=== PATIENT | female | born 1950 | race Caucasian/White ===

== ENCOUNTER 2017-03-06 14:12 | Emergency (ER) | payer MEDICARE, OTHER ==
[~2017-03-06] VITALS: Ht 157.5 cm; Wt 76.5 kg
[~2017-03-06 14:12] MED LIST: ATEN100T PO; BENA20TA48 PO; CIPR500T4 PO; GABA300C16 PO; HYDR-3011 PO; HYDR-3498 PO; MECL-77 PO; MECL25TA2 PO; NAPR-260 PO; PRAV40TA76 PO
[2017-03-06 14:51] VITALS: Ht 157.5 cm; Wt 76.5 kg
[2017-03-06] MEDS ORDERED: KENC1 TOP (15:31)
[2017-03-06] MEDS ORDERED: CETI10CA PO (15:31)
[2017-03-06] MEDS ORDERED: PRED20TA PO (15:32)
--- NOTE | 2017-03-06 15:35 | ERD ---
ER Documentation Chief Complaint Date/Time DATE: 03/06/17 TIME: 15:33 Chief Complaint Pt with body rash X 2 days. HPI This 66-year-old female presents with skin lesions for last 3 days. She has a few on her lower extremities and her abdomen. They are itchy. She was working out in the garden but denies any known exposures. She denies any fevers, cough , shortness breath or chest pain. She has similar lesion in the past after going to [place] with a resolve once she returned home. ROS All systems reviewed and are negative except as per history of present illness. Medications Home Meds Active Scripts Prednisone* (Prednisone*) 20 Mg Tab, 20 MG PO DAILY for 4 Days, TAB Prov:SAMPSON DEWITT MD 03/06/17 Cetirizine Hcl* (Zyrtec*) 10 Mg Capsule, 10 MG PO DAILY, #15 TAB.CHEW Prov:SAMPSON DEWITT MD 03/06/17 Triamcinolone Acetonide (Triamcinolone Acetonide) 0.1% - 15 Gm Cream.gm., 1 APPLIC TOP QID for 7 Days, #1 TUB Prov:SAMPSON DEWITT MD 03/06/17 Ciprofloxacin Hcl* (Ciprofloxacin Hcl*) 500 Mg Tablet, 500 MG PO BID for 7 Days , TAB Prov:SANDRA TANG PA-C 03/20/16 Meclizine Hcl* (Meclizine Hcl*) 25 Mg Tablet, 25 MG PO Q8H Y for vertigo, #20 TAB Prov:ROME BUTTERFIELD 11/27/15 Hydrocodone Bit-Acetaminophen* (Tarrs*) 5-325 Mg Tab, 1 TAB PO Q6 Y for PAIN, # 20 TAB Prov:ROME BUTTERFIELD 11/27/15 Meclizine Hcl* (Antivert*) 25 Mg Tablet, 25 MG PO Q6H Y for dizziness, #20 TAB Prov:RAFITA ASH MD 11/19/15 Reported Medications Hydroxyzine Hcl* (Hydroxyzine Hcl*) 25 Mg Tablet, 25 MG PO DAILY Y for ITCHING, TAB 09/17/14 Gabapentin* (Gabapentin*) 300 Mg Capsule, 300 MG PO BID, CAP 09/17/14 Naproxen* (Naprosyn*) 500 Mg Tablet, 500 MG PO BID, TAB 08/25/14 Benazepril Hcl* (Benazepril Hcl*) 20 Mg Tablet, 20 MG PO DAILY, TAB 08/25/14 Pravastatin Sodium* (Pravastatin Sodium*) 40 Mg Tablet, 40 MG PO HS, TAB 08/25/14 Atenolol* (Atenolol*) 100 Mg Tablet, 100 MG PO DAILY, TAB 08/25/14 Allergies Allergies: Coded Allergies: No Known Allergies (Verified Allergy, Mild, 03/06/17) PMhx/Soc History of Surgery: Yes (T&A, C/S) Anesthesia Reaction: No Hx Neurological Disorder: No Hx Respiratory Disorders: No Hx Cardiac Disorders: Yes (HTN , Hyperlipidemia) Hx Psychiatric Problems: Yes (DEPRESSION) Hx Miscellaneous Medical Probl: Yes (DM; djd; fatty liver; back pain) Hx Alcohol Use: No Hx Substance Use: No Hx Tobacco Use: Yes Smoking Status: Current every day smoker Physical Exam Vitals Vital Signs Date Time Temp Pulse Resp B/P Pulse Ox O2 Delivery O2 Flow Rate FiO2 03/06/17 14:51 99.0 84 20 137/65 97 Physical Exam Const: [] Alert, [id number]. Head: Atraumatic Eyes: Normal Conjunctiva ENT: Normal External Ears, Nose and Mouth. Neck: Full range of motion..~ No meningismus. Resp: Clear to auscultation bilaterally Cardio: Regular rate and rhythm, no murmurs Abd: Soft, non tender, non distended. Normal bowel sounds Skin: No petechiae or purpura. There are few scattered erythematous wheals approximate 1 cm with a central papule. There are 2 in the feet and one on the abdomen and one in the left upper extremity. There is no induration, streaking , vesicles, warmth, fluctuance Back: No midline or flank tenderness Ext: No cyanosis, or edema Neur: Awake and alert Psych: Normal Mood and Affect Procedures/MDM This patient presents with skin lesions with the clinical appearance of local reaction to insect bites, possibly flea bites. Signs or symptoms do not suggest purpura, life-threatening rashes or significant signs of infection. She will treated with triamcinolone, Zyrtec short course prednisone instruction to follow-up with her primary care doctor this week. The patient was stable with no new complaints during the ER course. Clinically, there is no current evidence to suggest meningitis, sepsis, acute abdomen, pneumonia, acute coronary syndrome, pulmonary embolism, or any other emergent condition appearing to require further evaluation or hospitalization. The patient should certainly return for any new or worsening symptoms per the aftercare instructions. They should otherwise follow-up with her primary care doctor for reevaluation this week. Departure Diagnosis: Primary Impression: Rash Condition: Stable Patient Instructions: Dermatitis, Non-Specific, Allergic Reaction, Insect ( Local) Additional Instructions: Cheque otro vez con santana doctor primario en el proximo abraham or regresa para mas o nueva simptomas. SAMPSON DEWITT MD March 06, 2017 15:35
[2017-03-06 15:42] VITALS: BP 132/63; PULSE 72; RESP 20; TEMP 98.8
== END 2017-03-06 15:43 | disposition home or self-care (01) ==
LOC: FTE 14:12
DX: R21 Rash and other nonspecific skin eruption (principal); I10 Essential (primary) hypertension; E11.9 Type 2 diabetes mellitus without complications; F17.210 Nicotine dependence, cigarettes, uncomplicated
CPT/HCPCS: 99284

== ENCOUNTER 2017-11-21 14:27 | Emergency (ER) | END 2017-11-21 17:55 | disposition left against medical advice (07) ==

== ENCOUNTER 2019-01-31 11:56 | Emergency (ER) | payer MEDICARE, OTHER ==
[~2019-01-31] VITALS: Wt 74.2 kg
[~2019-01-31 11:56] MED LIST changes: +BENA20TA4 PO; -BENA20TA48 PO; +CETI10CA PO; -HYDR-3011 PO; +HYDR-843 PO; -NAPR-260 PO; +NAPR-985 PO; +PRED20TA PO; +TRIA15CR55 TOP
[2019-01-31 14:51] VITALS: BP 137/64; PULSE 75; RESP 20
[2019-01-31] MEDS ORDERED: ACET500C5 PO (17:11)
[2019-01-31] MEDS ORDERED: CEPH-443 PO (17:11)
--- NOTE | 2019-01-31 17:26 | ERD ---
ER Documentation Chief Complaint Chief Complaint DYSURIA HPI 68 -year-old female patient with a past medical history of hypertension complaining of urinary frequency, dysuria and burning with urination that started earlier today. Patient reports that she was coming to the hospital, was trying to hold her urine to give us a urine sample and accidentally urinated in her pants. Denies any history of incontinence. Denies any fever, chills, flank pain, back pain, abdominal pain, chest pain, shortness of breath, denies, vaginal bleeding, vaginal discharge. ROS All systems reviewed and are negative except as per history of present illness. Medications Home Meds Active Scripts Acetaminophen* (Tylophen*) 500 Mg Capsule, 1 CAP PO Q6H PRN for PAIN AND OR ELEVATED TEMP, #20 CAP Prov:MARISA PETERSON PA-C 01/31/19 Cephalexin* (Keflex*) 500 Mg Capsule, 500 MG PO QID for 7 Days, CAP Prov:MARISA PETERSON PA-C 01/31/19 Prednisone* (Prednisone*) 20 Mg Tab, 20 MG PO DAILY for 4 Days, TAB Prov:SAMPSON DEWITT MD 03/06/17 Cetirizine Hcl* (Zyrtec*) 10 Mg Capsule, 10 MG PO DAILY, #15 TAB.CHEW Prov:SAMPSON DEWITT MD 03/06/17 Triamcinolone Acetonide (Triamcinolone Acetonide) 0.1% - 15 Gm Cream.gm., 1 APPL IC TOP QID for 7 Days, #1 TUB Prov:SAMPSON DEWITT MD 03/06/17 Ciprofloxacin Hcl* (Ciprofloxacin Hcl*) 500 Mg Tablet, 500 MG PO BID for 7 Days, TAB Prov:SANDRA TANG PA-C 03/20/16 Meclizine Hcl* (Meclizine Hcl*) 25 Mg Tablet, 25 MG PO Q8H PRN for vertigo, #20 TAB Prov:ROME BUTTERFIELD MD 11/27/15 Hydrocodone Bit-Acetaminophen* (Boring*) 5-325 Mg Tab, 1 TAB PO Q6 PRN for PAIN, #20 TAB Prov:ROME BUTTERFIELD MD 11/27/15 Meclizine Hcl* (Antivert*) 25 Mg Tablet, 25 MG PO Q6H PRN for dizziness, #20 TAB Prov:RAFITA ASH MD 11/19/15 Reported Medications Hydroxyzine Hcl* (Hydroxyzine Hcl*) 25 Mg Tablet, 25 MG PO DAILY PRN for ITCHING, TAB 09/17/14 Gabapentin* (Gabapentin*) 300 Mg Capsule, 300 MG PO BID, CAP 09/17/14 Naproxen* (Naprosyn*) 500 Mg Tablet, 500 MG PO BID, TAB 08/25/14 Benazepril Hcl* (Benazepril Hcl*) 20 Mg Tablet, 20 MG PO DAILY, TAB 08/25/14 Pravastatin Sodium* (Pravastatin Sodium*) 40 Mg Tablet, 40 MG PO HS, TAB 08/25/14 Atenolol* (Atenolol*) 100 Mg Tablet, 100 MG PO DAILY, TAB 08/25/14 Allergies Allergies: Coded Allergies: No Known Allergies (Verified Allergy, Mild, 03/06/17) PMhx/Soc History of Surgery: Yes (T&A, C/S) Anesthesia Reaction: No Hx Neurological Disorder: No Hx Respiratory Disorders: No Hx Cardiac Disorders: Yes (HTN , Hyperlipidemia) Hx Psychiatric Problems: Yes (DEPRESSION) Hx Miscellaneous Medical Probl: Yes (DM; djd; fatty liver; back pain) Hx Alcohol Use: No Hx Substance Use: No Hx Tobacco Use: Yes FmHx Family History: No diabetes, No coronary disease Physical Exam Vitals Vital Signs Date Temp Pulse Resp B/P (MAP) Pulse Ox O2 O2 Flow FiO2 Time Delivery Rate 01/31/19 98.8 75 20 137/64 98 Room Air 14:51 (88) 01/31/19 97.1 80 20 173/73 100 12:12 (106) Physical Exam Const: Pca-das-hftzztuqy, well-nourished. In no acute distress. Head: Atraumatic, normocephalic Eyes: Normal Conjunctiva without injection. No purulent discharge. ENT: Normal external ear, nose. Moist oropharynx without tonsillar exudates. Non-erythematous pharynx. Uvula midline. No drooling. No trismus. Neck: No cervical midline tenderness. Full range of motion. No meningismus. No cervical lymphadenopathy. No JVD. Resp: Clear to auscultation bilaterally. No wheezing, rhonchi, rales, or crackles. No accessory muscle use. No retractions. Cardio: Regular rate and rhythm. No murmurs, rubs or gallops. Abd: Soft, nontender, non distended. Normal bowel sounds. No palpable masses. No rebound tenderness. No guarding. Negative McBurney's point. Negative psoas sign. Negative obturator sign. Skin: No petechiae or rashes Back: No midline tenderness. No CVA tenderness. Ext: No cyanosis, or edema. Neur: Awake and alert. Normal gait. Normal coordination. Psych: Normal Mood and Affect Results 24 hrs Laboratory Tests Test 01/31/19 15:49 Bedside Urine pH (LAB) 7.5 Bedside Urine Protein (LAB) Negative Bedside Urine Glucose (UA) Negative Bedside Urine Ketones (LAB) Negative Bedside Urine Blood Trace-lysed Bedside Urine Nitrite (LAB) Positive Bedside Urine Leukocyte Esterase (L 1+ Procedures/MDM 68-year-old female patient with past medical history of hypertension presents to ED complaint of dysuria, urinary frequency, burning with urination. Patient is afebrile and nontoxic-appearing. Patient's urine dip shows 1+ leukocyte esterase and positive nitrite. Patient will be treated for urinary tract infection. There is low suspicion for urosepsis. Patient is afebrile and not tachycardic. Urine culture will be sent for further evaluation. A new pair of comfortable sweats was also given to patient. Low suspicion for ectopic , ovarian torsion, gastritis, GERD, peptic ulcer disease, cholecystitis, choledocholithiasis, cholangitis, pancreatitis, appendicitis, bowel obstruction, ileus, volvulus, nephrolithiasis, pyelonephritis, hepatitis, perforated viscus, diverticulitis, strangulated/incarcerated hernia, DKA, acute abdomen, mesenteric ischemia or other emergent conditions. Discussed my supervising physician with Dr. Vasquez who agreed with the management discharge plan. Diagnosis: Dysuria Discharge medications: Keflex, Tylenol Follow up with primary care physician in 1-2 days for referral to commercial finance manager. Instructed patient to return to the ED sooner for any worsening symptoms. Patient's questions were answered. Patient understood and agreed with discharge plan. Patient discharged stable. Disclaimer: Inadvertent spelling and grammatical errors are likely due to EHR/dictation software use and do not reflect on the overall quality of patient care. Also, please note that the electronic time recorded on this note does not necessarily reflect the actual time of the patient encounter. Departure Diagnosis: Primary Impression: Dysuria Condition: Stable Patient Instructions: Urinary Tract Infections in Women Referrals: [facility] Usted se carter hecho un examen mdico de control que le indica que no est en blossom condicin que requiera tratamiento urgente en el Departamento de Emergencia. Un estudio ms profundo y el tratamiento de santana condicin pueden esperar sin ningn riesgo hasta que usted sea atendida/o en el consultorio de santana mdico o blossom clnica. Es responsabilidad suya arreglar blossom ho para el seguimiento del jorge luis. MANEJO DE CONDICIONES NO URGENTES EN EL FUTURO 1) Si usted tiene un mdico de atencin primaria: Usted debera llamar a santana mdico de atencin primaria antes de venir al departamento de emergencia. Despus de las horas de consultorio, santana doctor o santana asociado/a est disponible por telfono. El mdico o enfermero de roselyn en el servicio telefnico puede asesorarle por fatou medio para atender el problema, o jorge luis contrario se puede programar blossom ho. 2) Si usted no tiene un mdico de atencin primaria: Llame al mdico o clnica de referencia que aparece abajo tita las horas de consultorio para hacer blossom ho para que le vean. CLINICAS: [facility] [phone] [id number] [facility] [phone] [address] [facility] [phone] [address] [facility]. [facility] [phone] [address] [facility]. [facility] [phone] [address] [facility]. [phone] [address] [facility]. [facility] () Shana se carter hecho un examen mdico de control que le indica que no est en blossom condicin que requiera tratamiento urgente en el Departamento de Emergencia. Un estudio ms profundo y el tratamiento de santana condicin pueden esperar sin ningn riesgo hasta que usted sea atendida/o en el consultorio de santana mdico o blossom clnica. Es responsabilidad suya arreglar blossom ho para el seguimiento del jorge luis. MANEJO DE CONDICIONES NO URGENTES EN EL FUTURO 1) Si usted tiene un mdico de atencin primaria: Usted debera llamar a santana mdico de atencin primaria antes de venir al departamento de emergencia. Despus de las horas de consultorio, santana doctor o santana asociado/a est disponible por telfono. El mdico o enfermero de roselyn en el servicio telefnico puede asesorarle por fatou medio para atender el problema, o jorge luis contrario se puede programar blossom ho. 2) Si usted no tiene un mdico de atencin primaria: Llame al mdico o condado institucions de referencia que aparece abajo tita las horas de consultorio para hacer blossom ho para que le vean. SI USTED NO PUEDE PAGAR PARA DANELLE UN MEDICO puede ir a: [facility] [id number] [place] [address] [facility] [address] [place] [address] [facility] [address] [place] [address] PARA [facility] [address] [place] [address] Additional Instructions: Llame al doctor MAANA y mikayla blossom HO PARA DENTRO DE 2-3 ANDREWS.Dgale a la secretaria que nosotros le instruimos hacer esta ho.Avise o llame si santana condicin se empeora antes de la ho. Regresa aqui si peor o no mejor. MARISA PETERSON PA-C Jan 31, 2019 17:26
== END 2019-01-31 17:44 | disposition home or self-care (01) ==
LOC: FTE 11:56
DX: R30.0 Dysuria (principal); I10 Essential (primary) hypertension; E11.9 Type 2 diabetes mellitus without complications; Z87.891 Personal history of nicotine dependence
CPT/HCPCS: 81003; 87086; 99283

== ENCOUNTER 2019-03-10 15:02 | Emergency (ER) | payer MEDICARE, OTHER ==
[~2019-03-10] VITALS: Wt 73.2 kg
[~2019-03-10 15:02] MED LIST changes: +ACET500C5 PO; +CEPH-443 PO
[2019-03-10] MEDS ORDERED: NITR-58 PO (18:34)
[2019-03-10] MEDS ORDERED: PHEN-538 PO (18:34)
[2019-03-10 18:55] VITALS: BP 145/68; PULSE 68; RESP 20
--- NOTE | 2019-03-10 19:31 | ERD ---
ER Documentation Chief Complaint Chief Complaint pain, cloudy urine x3d: hx uti 02/22 got better but sx returned HPI History of Present Illness: 68-year-old 68-year-old female with history of hypertension coming in today with complaint of painful urination, cloudy urine present for 3 days. Patient denies flank pain. Patient with recent UTI 01/31/2019 which she was given cephalexin. Patient reports symptoms went away, but returned a few days ago. Patient denies any other associated symptoms. Patient denies fever, chills, malaise. At home pharmacological/nonpharmacological treatment for symptoms: Denies Denies social concerns; Denies recent foreign travel ROS All systems reviewed and are negative except as per history of present illness. Medications Home Meds Active Scripts Nitrofurantoin Monohyd Macrocr* (Macrobid*) 100 Mg Capsr, 100 MG PO BID for URINE INFECTION for 7 Days, CAP Prov:LAUREN MCLAUGHLIN NP 03/10/19 Phenazopyridine Hcl* (Pyridium*) 200 Mg Tab, 200 MG PO TID PRN for URINARY PAIN, #6 TAB Prov:LAUREN MCLAUGHLIN NP 03/10/19 Acetaminophen* (Tylophen*) 500 Mg Capsule, 1 CAP PO Q6H PRN for PAIN AND OR ELEVATED TEMP, #20 CAP Prov:MARISA PETERSON PA-C 01/31/19 Cephalexin* (Keflex*) 500 Mg Capsule, 500 MG PO QID for 7 Days, CAP Prov:MARISA PETERSON PA-C 01/31/19 Prednisone* (Prednisone*) 20 Mg Tab, 20 MG PO DAILY for 4 Days, TAB Prov:SAMPSON DEWITT MD 03/06/17 Cetirizine Hcl* (Zyrtec*) 10 Mg Capsule, 10 MG PO DAILY, #15 TAB.CHEW Prov:SAMPSON DEWITT MD 03/06/17 Triamcinolone Acetonide (Triamcinolone Acetonide) 0.1% - 15 Gm Cream.gm., 1 APPLIC TOP QID for 7 Days, #1 TUB Prov:SAMPSON DEWITT MD 03/06/17 Ciprofloxacin Hcl* (Ciprofloxacin Hcl*) 500 Mg Tablet, 500 MG PO BID for 7 Days, TAB Prov:SANDRA TANG PA-C 03/20/16 Meclizine Hcl* (Meclizine Hcl*) 25 Mg Tablet, 25 MG PO Q8H PRN for vertigo, #20 TAB Prov:ROME BUTTERFIELD MD 11/27/15 Hydrocodone Bit-Acetaminophen* (Bradley*) 5-325 Mg Tab, 1 TAB PO Q6 PRN for PAIN, #20 TAB Prov:ROME BUTTERFIELD MD 11/27/15 Meclizine Hcl* (Antivert*) 25 Mg Tablet, 25 MG PO Q6H PRN for dizziness, #20 TAB Prov:RAFITA ASH MD 11/19/15 Reported Medications Hydroxyzine Hcl* (Hydroxyzine Hcl*) 25 Mg Tablet, 25 MG PO DAILY PRN for ITCHING, TAB 09/17/14 Gabapentin* (Gabapentin*) 300 Mg Capsule, 300 MG PO BID, CAP 09/17/14 Naproxen* (Naprosyn*) 500 Mg Tablet, 500 MG PO BID, TAB 08/25/14 Benazepril Hcl* (Benazepril Hcl*) 20 Mg Tablet, 20 MG PO DAILY, TAB 08/25/14 Pravastatin Sodium* (Pravastatin Sodium*) 40 Mg Tablet, 40 MG PO HS, TAB 08/25/14 Atenolol* (Atenolol*) 100 Mg Tablet, 100 MG PO DAILY, TAB 08/25/14 Allergies Allergies: Coded Allergies: No Known Allergies (Verified Allergy, Mild, 03/06/17) PMhx/Soc History of Surgery: Yes (T&A, C/S) Anesthesia Reaction: No Hx Neurological Disorder: No Hx Respiratory Disorders: No Hx Cardiac Disorders: Yes (HTN , Hyperlipidemia) Hx Psychiatric Problems: Yes (DEPRESSION) Hx Miscellaneous Medical Probl: Yes (DM; djd; fatty liver; back pain) Hx Alcohol Use: No Hx Substance Use: No Hx Tobacco Use: Yes Smoking Status: Current every day smoker FmHx Family History: No diabetes Physical Exam Vitals Vital Signs Date Temp Pulse Resp B/P (MAP) Pulse Ox O2 O2 Flow FiO2 Time Delivery Rate 03/10/19 98.3 68 20 145/68 98 Room Air 18:55 (93) 03/10/19 99.0 97 18 141/66 98 15:40 (91) Physical Exam Const: No acute distress Head: Atraumatic Eyes: Normal Conjunctiva ENT: Normal External Ears, Nose and Mouth. Neck: Full range of motion. No meningismus. Resp: Clear to auscultation bilaterally Cardio: Regular rate and rhythm, no murmurs Abd: Soft, suprapubic tenderness, non distended. Normal bowel sounds Skin: No petechiae or rashes Back: No midline or flank tenderness Ext: No cyanosis, or edema Neur: Awake and alert Psych: Normal Mood and Affect Results 24 hrs Laboratory Tests Test 03/10/19 18:03 Urine Color YELLOW Urine Clarity SLIGHTLY CLOUDY Urine pH 5.0 Urine Specific [place] 1.021 Urine Ketones NEGATIVE mg/dL Urine Nitrite NEGATIVE mg/dL Urine Bilirubin NEGATIVE mg/dL Urine Urobilinogen 1+ mg/dL Urine Leukocyte Esterase 1+ Ross/ul Urine Microscopic RBC 2 /HPF Urine Microscopic WBC 2 /HPF Urine Squamous Epithelial Cells FEW /HPF Urine Calcium Oxalate Crystals FEW /HPF Urine Bacteria FEW /HPF Urine Mucus FEW /HPF Urine Hemoglobin NEGATIVE mg/dL Urine Glucose NEGATIVE mg/dL Urine Total Protein NEGATIVE mg/dl Procedures/MDM ED course includes a thorough examination and history. Medications: Imaging: Labs: Urinalysis; urine culture Low suspicion for life-threatening medical emergency. Low suspicion for infectious emergency that requires IV/IM antibiotics or hospitalization. Otherwise healthy patient presenting with constellation of symptoms likely representing recurrent UTI as characterized by history, physical exam finding lab findings. Urinalysis positive for leukocyte esterase, WBCs, few bacteria; negative for hematuria Patient reassessment : Patient hemodynamically stable. Disposition given. Urine culture results in 2 to 3 days; will be contacted if need to change antibiotics. No respiratory distress, otherwise relatively well appearing and nontoxic. Patient educated on diagnoses, prescriptions, follow-up care, return precautions. Strict return precautions given for worsening condition; questions answered discharge. Disposition for discharge with followup in 2 days with PCP/clinic. Departure Diagnosis: Primary Impression: UTI (urinary tract infection) Urinary tract infection type: site unspecified Hematuria presence: without hematuria Qualified Codes: N39.0 - Urinary tract infection, site not specified Condition: Stable Patient Instructions: Urinary Tract Infections in Women Ref[facility] Usted se carter hecho un examen mdico de control que le indica que no est en blossom condicin que requiera tratamiento urgente en el Departamento de Emergencia. Un estudio ms profundo y el tratamiento de segundo condicin pueden esperar sin ningn riesgo hasta que usted sea atendida/o en el consultorio de segundo mdico o blossom clnica. Es responsabilidad suya arreglar blossom wil para el seguimiento del jorge luis. MANEJO DE CONDICIONES NO URGENTES EN EL FUTURO 1) Si usted tiene un mdico de atencin primaria: Usted debera llamar a segundo mdico de atencin primaria antes de venir al departamento de emergencia. Despus de las horas de consultorio, segundo doctor o segundo asociado/a est disponible por telfono. El mdico o enfermero de roselyn en el servicio telefnico puede asesorarle por fatou medio para atender el problema, o jorge luis contrario se puede programar blossom wil. 2) Si usted no tiene un mdico de atencin primaria: Llame al mdico o clnica de referencia que aparece abajo tita las horas de consultorio para hacer blossom wil para que le vean. CLINICAS: [facility] [phone] [address] [facility] [phone] [address] [facility]. [facility] [phone] [facility]. [facility] [phone] [facility]. [place] [id number] [phone] [facility]. [phone] [facility] () Usted se carter hecho un examen mdico de control que le indica que no est en blossom condicin que requiera tratamiento urgente en el Departamento de Emergencia. Un estudio ms profundo y el tratamiento de segundo condicin pueden esperar sin ningn riesgo hasta que usted sea atendida/o en el consultorio de segundo mdico o blossom clnica. Es responsabilidad suya arreglar blossom wil para el seguimiento del jorge luis. MANEJO DE CONDICIONES NO URGENTES EN EL FUTURO 1) Si usted tiene un mdico de atencin primaria: Usted debera llamar a segundo mdico de atencin primaria antes de venir al departamento de emergencia. Despus de las horas de consultorio, segundo doctor o seugndo asociado/a est disponible por telfono. El mdico o enfermero de roselyn en el servicio telefnico puede asesorarle por fatou medio para atender el problema, o jorge luis contrario se puede programar blossom wil. 2) Si usted no tiene un mdico de atencin primaria: Llame al mdico o condado institucions de referencia que aparece abajo tita las horas de consultorio para hacer blossom wil para que le vean. SI USTED NO PUEDE PAGAR PARA DANELLE UN MEDICO puede ir a: [facility] [id number] [place] [address] [facility] [address] [place] [address] [facility] [address] [place] [address] [facility] [address] [place], [place] [id number] Additional Instructions: Muchas maulik por permitirnos participar en segundo cuidado. Segundo laura y seguridad es nuestra principal prioridad en [facility]. Es importante leer todas las instrucciones de almita y la educacin que se proporcionan en segundo paquete de almita. * Hicimos un nuevo anlisis de orina hoy llamado un cultivo de orina. Tendremos los resultados en 2 a 3 paez. Si necesitamos cambiar segundo antibitico para la infeccin de la orina, nos comunicaremos con usted. * Llame a segundo mdico de atencin primaria MAANA para blossom wil tita los prximos 2 a 4 paez y lleve toda la informacin y los medicamentos recetados. Llene las recetas y siga exactamente las instrucciones de la etiqueta. -Macrobid es un antibitico para la infeccin de orina; tome jacquie medicamento ksenia se indica en segundo receta. Debe completar todo el curso de tratamiento que figura en segundo receta. Thornton es muy importante porque se necesitan varios paez para eliminar las bacterias que causan la infeccin. -Fenazopyridine / Pyridium es un medicamento que ayudar a disminuir el dolor urinario. Jacquie medicamento isidra que segundo orina sea de color naranja. Jacquie es un efecto secundario normal de la medicacin. Si los sntomas empeoran y segundo proveedor no est disponible, regrese inm ediatamente al Departamento de Emergencias. Si tiene fiebre, dolor de espalda, escalofros, falta de apetito, aumento del dolor abdominal; Regrese al departamento de emergencias inmediatamente. -- Thank you very much for allowing us to participate in your care. Your health and safety is our top priority at [facility]. It is important to read all discharge instructions and education provided in your discharge packet. *We did a further urine tests today called a urine culture. We will have the results in 2 to 3 days. If we need to change her antibiotic for the urine infection, we will contact you.* Call your primary care doctor TOMORROW for an appointment during the next 2-4 days and bring all the information and medications prescribed. Have prescriptions filled and follow precisely the directions on the label. -Macrobid is an antibiotic for urine infection; take this medication as listed on your prescription. You must complete the entire course of treatment that is listed on your prescription this is very important because it takes a certain number of days to kill the bacteria that is causing the infection. -Phenazopyridine/Pyridium is a medication that will help decrease urinary pain. This medication will make your urine orange. This is a normal side effect of the medication. If the symptoms get worse and your provider is unavailable, return to the [facility] Department immediately. If you develop fever, back pain, chills, no appetite, increased abdominal pain; return to emergency department immediately. LAUREN MCLAUGHLIN NP March 10, 2019 19:31
== END 2019-03-10 18:57 | disposition home or self-care (01) ==
LOC: FTE 15:02
DX: N39.0 Urinary tract infection, site not specified (principal); I10 Essential (primary) hypertension; E11.9 Type 2 diabetes mellitus without complications; F17.210 Nicotine dependence, cigarettes, uncomplicated
CPT/HCPCS: 81001; 87086; 99283